=== PATIENT | female | born 1980 | race Caucasian/White ===

== ENCOUNTER → 2022-10-23 12:09 | Outpatient (CLI) | payer BC, SELFPAY ==
--- NOTE | ~2022-10-23 | MM_ITS ---
EXAMINATION: MM screening [facility] BI w bayron HISTORY: Screening TECHNIQUE: Craniocaudal and mediolateral oblique 3-D tomosynthesis images were obtained and synthetic 2-D images were generated. CAD analysis was submitted and interpreted. COMPARISON: No prior mammogram is available for comparison at this institution. BREAST PARENCHYMAL COMPOSITION: Breast composed of scattered areas of fibroglandular density FINDINGS: There is a mass in the upper outer quadrant of the left breast posteriorly. There is no angeline mographic evidence for malignancy in the right breast. IMPRESSION: 1. Left breast mass, upper outer quadrant. 2. Additional mammographic views and possible breast ultrasound are recommended. BI-RADS Category 0: Incomplete: Needs additional imaging evaluation. Reviewed, dictated and finalized at location A. P PROCESSOR IMPRESSION: 1. Left breast mass, upper outer quadrant. 2. Additional mammographic views and possible breast ultrasound are recommended . BI-RADS Category 0: Incomplete: Needs additional imaging evaluation.
== END ==
PROVIDERS: PCP Obstetrics & Gynecology; Visit Provider Nurse Practitioner
DX: Z12.31 Encounter for screening mammogram for malignant neoplasm of breast (principal); R92.8 Other abnormal and inconclusive findings on diagnostic imaging of breast
CPT/HCPCS: 77063; 77067

== ENCOUNTER → 2022-11-13 08:56 | Outpatient (CLI) | payer BC, SELFPAY ==
--- NOTE | ~2022-11-13 | MMUS_ITS ---
EXAMINATION: MM diagnostic [facility] LT w bayron, US breast LT limited HISTORY: Upper outer quadrant left breast mass reported on October 23, 2022 screening mammogram TECHNIQUE: Additional 3-D tomosynthesis images of the left breast were performed and synthetic 2-D im ages were generated. CAD analysis was submitted and interpreted. High resolution upper outer quadrant left breast ultrasound was performed. COMPARISON: October 23, 2021 bilateral screening mammogram FINDINGS: MAMMOGRAPHIC FINDINGS: There is an approximately 6 x 8 mm mass in the posterior upper outer left breast. The margins are par tially obscured. No prior mammogram is available for comparison. ULTRASOUND: Left breast 2:00 5 cm from nipple: 5.2 x 8.5 mm irregular hypoechoic solid lesion is noted without in ternal vascularity or posterior shadowing. No other suspicious mass or shadowing is detected in the upper outer quadrant. IMPRESSION: 1. Irregular 6 x 8 mm hypoechoic mass in the posterior upper outer left breast 2. There is reportedly no prior mammogram available for comparison. Ultrasound-guided biopsy of the l eft breast 2:00 lesion is recommended. BI-RADS category 4, suspicious findings. Reviewed, dictated and finalized at location A. PREVENTION LEAD IMPRESSION: 1. Irregular 6 x 8 mm hypoechoic mass in the posterior upper outer left breast 2. There is reportedly no prior mammogram available for comparison. Ultrasound- guided biopsy of the left breast 2:00 lesion is recommended. BI-RADS category 4, suspicious findings.
== END ==
PROVIDERS: PCP Nurse Practitioner; Visit Provider Obstetrics & Gynecology
DX: R92.8 Other abnormal and inconclusive findings on diagnostic imaging of breast (principal)
CPT/HCPCS: 76642; 77061; 77065; G0279

== ENCOUNTER 2022-11-26 10:14 | Outpatient (CLI) | payer BC, SELFPAY ==
--- NOTE | ~2022-11-26 | MMUS_ITS ---
EXAMINATION: US breast biopsy LT w image, MM post biopsy invasive LT DATE: 11/26/2022 11:43 (accession [id number]), 11/26/2022 11:33 (accession [id number]) INDICATION: Indeterminate mass in the upper outer quadrant of the left breast. Ultrasound-guided core biopsy is requested to evaluate for malignancy. TECHNIQUE AND FINDINGS: The risks and potential benefits of the procedure were discussed with the patient including bleeding and infection. A time out was performed. The skin of the left breast was prepared and draped in usual sterile fashion. 1% lidocaine was used for superficial anesthesia. 1% lidocaine with epinephrine was used for deep anesthesia. A vacuum-assisted biopsy needle was advanced through to the outer edge of the region of interest from an inferior approach utilizing sonographic guidance. A total of three tissue core samples were obtai ofe through the lesion. A tissue marker clip was then placed at the biopsy site. Hemostasis was achie teresa. A sterile bandage was applied. The patient tolerated procedure well and there was no evidence of immediate complication. The patient was given verbal instructions to return to the Emergency Department in the event of severe breast pa in or rapid breast enlargement. A two view left breast mammogram was obtained to document tissue raine er clip placement. IMPRESSION: 1. Successful ultrasound-guided vacuum-assisted biopsy of left breast mass with tissue marker placeme nt. Reviewed, dictated and finalized at location A. NCILIATION ACCOUNTANT IMPRESSION: 1. Successful ultrasound-guided vacuum-assisted biopsy of left breast mass with tissue marker placement.
== END 2022-11-26 10:15 | disposition home or self-care (01) ==
PROVIDERS: PCP Nurse Practitioner; Visit Provider Obstetrics & Gynecology
DX: R92.8 Other abnormal and inconclusive findings on diagnostic imaging of breast (principal)
CPT/HCPCS: 19083; 88305; A4648

== ENCOUNTER 2024-04-10 11:10 | Outpatient (CLI) | payer BC, SELFPAY ==
--- NOTE | ~2024-04-10 | MM_ITS ---
EXAMINATION: MM screening [facility] BI w [facility] HISTORY: Screening TECHNIQUE: Craniocaudal and mediolateral oblique 3-D tomosynthesis images were obtained and synthetic 2-D images were generated. CAD analysis was submitted and interpreted. COMPARISON: No prior mammogram is available for comparison at this institution. BREAST PARENCHYMAL COMPOSITION: Not dense: There are scattered areas of fibroglandular density. FINDINGS: There is no evidence of suspicious mass, calcification, or architectural distortion to sugg est malignancy in either breast. There has been no suspicious interval change. IMPRESSION: 1. No mammographic evidence of malignancy. 2. Recommend routine screening mammography in one year. BI-RADS Category 1: Negative Reviewed, dictated and finalized at location B.
== END 2024-04-10 11:11 ==
LOC: MICIMG 11:12
PROVIDERS: PCP Nurse Practitioner; Visit Provider Obstetrics & Gynecology
DX: Z12.31 Encounter for screening mammogram for malignant neoplasm of breast (principal)
CPT/HCPCS: 77063; 77067